=== PATIENT | male | born 1970 ===

== ENCOUNTER 2019-09-17 07:25 | Inpatient (IN) | payer OTHER, SELFPAY ==
[2019-09-17 09:41] VITALS: BMI 31.1
[2019-09-17] MEDS ORDERED: Ondansetron PF 4 MG/2 ML Vial IVP PRN (09:46)
[2019-09-17] MEDS ORDERED: Ondansetron ODT 4 MG TAB PO PRN (09:46)
[2019-09-17] MEDS ORDERED: Bisacodyl 10 MG SUPP PR PRN (09:46)
[2019-09-17] MEDS ORDERED: Loperamide HCl 2 MG CAP PO PRN (09:46)
[2019-09-17] MEDS ORDERED: Calcium Carbonate 500 MG ChewTAB PO PRN (09:46)
[2019-09-17] MEDS ORDERED: Senokot S 8.6-50 MG TAB PO PRN (09:46)
[2019-09-17] MEDS ORDERED: hydrALAZINE 20 MG/ML VIAL SLOW IVP PRN (09:46)
[2019-09-17] MEDS ORDERED: Sodium Chloride 0.65% Nasal 44 ML BOT EA NARE PRN (09:46)
[2019-09-17] MEDS ORDERED: Loratadine 10 MG TAB PO PRN (09:46)
[2019-09-17] MEDS ORDERED: Diabetic Tussin 200 MG/10 ML UDCUP PO PRN (09:46)
[2019-09-17] MEDS ORDERED: Acetaminophen 325 MG TAB PO PRN (09:46)
[2019-09-17] MEDS ORDERED: Cepastat Lozenges 1 LOZ PO PRN (09:46)
[2019-09-17] MEDS ORDERED: FLU VACC QS2019-20(6MOS UP)/PF 60 MCG/0.5 ML SYRINGE IM ONE (10:15)
--- NOTE | 2019-09-17 10:33 | HP ---
PRIMARY CARE PHYSICIAN: The patient is from long term. REASON FOR ADMISSION: Transferred from long term for altered mental status, syncope, found with rhabdomyolysis, suspected aspiration pneumonia, and hypoxia. HISTORY OF PRESENT ILLNESS: A 48-year-old male, who is in long term. Last night, he was found altered and lethargic. He was less responsive. Per the patient, he was having back pain and some vague chest discomfort and he passed out, but he does not have any other symptoms before passing out, and when he regained consciousness, he was having back pain. He did not have any fever or chills. He did not have any cough, shortness of breath, or palpitation. The patient is not able to provide any more detailed history. 911 was called at long term, and when paramedics saw him, at that time, the patient was appeared lethargic. As per report, the patient was found in his shell on the ground with altered mental status. The patient did not have any seizure or any focal neurologic deficit. When he went to [facility], the patient was found with mild hypoxia with saturation 92% on room air and he was afebrile and hemodynamically stable. The patient had evaluation over there and found with suspected pneumonia and he had routine blood test, which showed rhabdomyolysis. The patient was still lethargic, and subsequently, he was transferred to our hospital. Over there, the patient was given IV fluid, Narcan 0.4 mg and Rocephin 1 g. Over there, routine blood test showed hypokalemia, leukopenia, rhabdomyolysis, and EKG is normal. When I saw this patient, the patient is still sleepy, but arousable, and able to provide some history, but the patient does not have any clue why he is here. PAST MEDICAL HISTORY: As per long term system record, the patient has schizophrenia, glaucoma, osteoarthritis, venereal warts. PAST PSYCHIATRIC HISTORY: Schizophrenia. PAST SURGICAL HISTORY: Unable to obtain from the patient and the patient denies any previous surgical history. ALLERGIES: NO KNOWN DRUG ALLERGIES. SOCIAL HISTORY: The patient is from long term system. No history of tobacco, alcohol, or illicit drug abuse. EMERGENCY ROOM COURSE: The patient has received 3 L IV fluid, Narcan 0.4 mg, Rocephin 1 g. FAMILY HISTORY: No strong family history of CAD, CVA or cancer REVIEW OF SYSTEMS: CONSTITUTIONAL: Negative for weight loss or gain, ability to conduct usual activities. SKIN: Negative for rash, itching. EYES: Negative for double vision, pain. ENT/MOUTH: Negative for nose bleeding, neck stiffness, pain, tenderness. CARDIOVASCULAR: Negative for palpitations, dyspnea on exertion, orthopnea. RESPIRATORY: Negative for shortness of breath, wheezing, cough, hemoptysis, fever or night sweats. GASTROINTESTINAL: Negative for poor appetite, abdominal pain, heartburn, nausea , vomiting, constipation, or diarrhea. GENITOURINARY: Negative for urgency, frequency, dysuria, nocturia. MUSCULOSKELETAL: Negative for pain, swelling. NEUROLOGIC/PSYCHIATRIC: Negative for anxiety, depression. ALLERGY/IMMUNOLOGIC: Negative for skin rash, bleeding tendency. Please see my HPI for pertinent positives and negatives. All other review of systems reviewed and negative except as mentioned in HPI. CURRENT HOME MEDICATIONS: Benadryl and Phenergan as needed basis. PHYSICAL EXAMINATION: VITAL SIGNS: On arrival, blood pressure 144/87, pulse 71, respiratory rate 14, temperature 98.2, saturation 92% on room air. Weight 99.7 kg. GENERAL: The patient is currently alert, awake, follows simple commands, in no obvious acute distress. Arousable, but still sleepy. HEENT: Normocephalic and atraumatic. Eyes, pupils round and reactive to light. Extraocular muscle intact. ENT, oropharynx within normal limits. Moist mucous membranes. No oral lesion. No pharyngeal erythema. No exudate. NECK: Supple. No JVD. No meningeal signs of irritation. LUNGS: Clear to auscultation without any rhonchi or rales. CARDIAC: S1 and S2 regular. No murmur. No gallop. No rub. ABDOMEN: Soft. Bowel sounds are present. Nontender. Nondistended. No organomegaly. No mass. EXTREMITIES: No edema. Good distal pulsation. NEUROLOGIC: Cranial nerve 2 through 12 intact. Motor 5/5 in all 4 limbs. Sensation bilaterally symmetrical. Plantar bilateral flexor. No focal neurological deficit noted. PSYCHIATRIC: Normal affect. SIGNIFICANT LABORATORY DATA: CBC; WBC 3.4, hemoglobin 13.1, platelet 196. BMP; sodium 137, potassium 3.1, chloride 99, carbon dioxide 26, anion gap 15, glucose 172, BUN 14, creatinine 1.0. LFTs; albumin 3.7, protein 7.3, globulin 3.6, calcium 7.8, AST 71, ALT 45, alkaline phosphatase 58. Urinalysis normal. Urine drug screen negative. Ammonia level 17. TSH 0.91. CK of 2004, CK-MB 3.0. Troponin less than 0.017. ABG; pH 7.35, CO2 of 46, O2 of 64.8, bicarb 25.3. Lactic acid 1.39. Ionized calcium 1.1. IMAGING STUDIES: EKG based on my review, normal sinus rhythm, within normal limits. Chest x-ray done at the [facility]. As per report, the patient has suspected infiltration, but unable to review because there was no imaging sent. ASSESSMENT AND PLAN: Impression; 1. Acute encephalopathy, unclear etiology, suspecting metabolic. 2. Syncope/transient alteration of awareness. 3. Rhabdomyolysis. 4. Mild hypoxia and suspected aspiration pneumonia. 5. Hypokalemia. 6. Leukopenia. 7. History of schizophrenia. PLAN: 1. Telemetry monitoring. Start IV fluid NS with KCl at 100 mL/h. Check orthostatic vitals. Repeat chest x-ray tomorrow. Repeat labs tomorrow including magnesium, phosphorus, and CK. We will obtain echocardiography as a part of workup and carotid Doppler. The patient does not need any IMU and we will transfer him to telemetry floor. 2. Deep venous thrombosis prophylaxis, Lovenox 40 mg subcu daily. GI prophylaxis, Pepcid 20 mg p.o. b.i.d. CODE STATUS: The patient is full code. DISPOSITION PLAN: Based on clinical course, we are expecting the patient's stay in hospital for at least 2 midnights. Job ID: [id number] [facility]
--- NOTE | 2019-09-17 10:52 | ULT ---
BILATERAL CAROTID DUPLEX ULTRASOUND: HISTORY: Syncope TECHNIQUE: Grayscale, color-flow and spectral Doppler ultrasound imaging of the extracranial carotid artery syst ems was performed bilaterally. FINDINGS: No significant plaque formation or intimal wall thickening is seen The peak systolic velocity in the right ICA measures 60 cm/s with an end-diastolic velocity of 25 cm/ s and a systolic ratio of 0.70. The peak systolic velocity in the left ICA measures 66 cm/s with an end-diastolic velocity of 33 cm/s and a systolic ratio of 0.65. Flow in both vertebral arteries remains antegrade. IMPRESSION: No evidence of hemodynamically significant stenosis in either ICA
[2019-09-17] MEDS ORDERED: cefTRIAXone\\ROCEPHIN 1 GM in Sodium Chloride 0.9% 100 ML IVPB SCH (11:00)
[2019-09-17] MEDS: NS 0.9% w/ 20 MEQ KCL 1,000 ML/1,000 ML BAG IV SCH (14:21)
[2019-09-17] MEDS: Famotidine 20 MG TAB PO SCH (20:33)
[2019-09-18] MEDS: NS 0.9% w/ 20 MEQ KCL 1,000 ML/1,000 ML BAG IV SCH ×2 (00:03→10:20)
[2019-09-18 04:14] LABS: #Eosinphils 0.1 thou/uL (0.0-0.7); #Lymphocytes 1.2 thou/uL (1.20-3.40); #Monocytes 0.3 thou/uL (0.11-0.59); #Neutrophils 2.1 thou/uL (1.40-6.50); %Basophils 0.2 % (0.0-1.0); %Eosinophils 2.7 % (0.0-10.0); %Lymphocytes 31.5 % (21.0-51.0); %Monocytes 9.2 % (0.0-10.0); %Neutrophils 56.3 % (42.0-75.0); Hemoglobin 13.6 g/dL (14.0-18.0); Mean Corpuscular HGB CONC 34.3 g/dL (32.0-36.0); Mean Corpuscular Hemoglobin 33.1 pg (27.0-31.0); Mean Corpuscular Volume 96.5 fL (78.0-98.0); Mean Platelet Volume 6.8 fL (7.4-10.4); Platelet Count 214 thou/uL (130-400); RBC Distribution Width 11.5 % (11.5-14.5); White Blood Cell (WBC) Count 3.7 thou/uL (4.8-10.8)
[2019-09-18 04:25] LABS: ALT (SGPT) 30 U/L (8-55); AST (SGOT) 33 U/L (5-34); Albumin 3.9 g/dL (3.5-5.0); Alkaline Phosphatase 51 U/L (40-110); Anion Gap 10 mmol/L (10-20); BUN (Urea Nitrogen) 9 mg/dL (8.9-20.6); Bilirubin, Total 0.3 mg/dL (0.2-1.2); CK (CPK) 918 U/L (30-200); Calc. Creatinine Clearance 149 mL/min (70-130); Calcium 8.5 mg/dL (7.8-10.44); Carbon Dioxide 27 mmol/L (22-29); Chloride 106 mmol/L (98-107); Estimated GFR-MDRD 90; Globulin 2.9 g/dL (2.4-3.5); Glucose 108 mg/dL (70-105); Magnesium 2.2 mg/dL (1.6-2.6); Potassium 3.8 mmol/L (3.5-5.1); Protein, Total 6.8 g/dL (6.0-8.3); Sodium 139 mmol/L (136-145)
[2019-09-18] MEDS ORDERED: Enoxaparin Sodium 40 MG/0.4 ML SYRINGE SC SCH (09:00)
--- NOTE | 2019-09-18 09:35 | RAD ---
EXAM: Chest 2 views: HISTORY: Aspiration COMPARISON: None. FINDINGS: There is a normal-sized cardiomediastinal silhouette. There is no evidence of consolidation, mass, or pleural effusion. The bones are unremarkable. IMPRESSION: No evidence of acute cardiopulmonary disease
[2019-09-18] MEDS: Famotidine 20 MG TAB PO SCH (10:20)
--- NOTE | 2019-09-18 11:01 | DIS ---
DATE OF ADMISSION: 09/17/2019 DATE OF DISCHARGE: 09/18/2019 PRIMARY CARE PHYSICIAN: [facility] Call admission. DISCHARGE DISPOSITION: Care Home. PRIMARY DISCHARGE DIAGNOSES: 1. Transient altered mental status, resolved. 2. Syncope, unclear etiology. 3. Rhabdomyolysis. SECONDARY DISCHARGE DIAGNOSES: 1. Obesity with BMI 31. 2. Schizophrenia. PRIMARY PROCEDURE/OPERATION: None. RADIOLOGICAL INVESTIGATION: Chest x-ray, normal. Echocardiography, normal EF. Carotid Doppler, no stenosis. SIGNIFICANT LABORATORY DATA: WBC 3.7, hemoglobin 13.6, platelet 214. BMP; sodium 139, creatinine 0.90, potassium 3.8, chloride 106, carbon dioxide 27, anion gap 10, BUN 9, calcium 8.5, magnesium 2.2, AST 33, ALT 30, alkaline phosphatase 51. CK 918. Albumin 3.9. Troponin negative x2. DISCHARGE MEDICATIONS: The patient will continue all his previous medications. Doxycycline 100 mg twice daily for 5 days. CONTRAINDICATION: None. CODE STATUS: Full code. 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 ALLERGIES: NO KNOWN DRUG ALLERGIES. DISCHARGE PLAN: Posthospital, the patient will be discharged back to [facility]. HOSPITAL COURSE: A 48-year-old male, who had altered mental status at [facility]. He was found in his shell. He was disoriented at that time, and there was question of syncopal episode at [facility]. The patient was evaluated at [facility], where the patient had chest x-ray which was unremarkable. Routine blood test showed rhabdomyolysis. The patient had hypokalemia which was replaced. The patient was transferred to our hospital. We treated him with IV fluid. We continued with Rocephin for suspected pneumonia. On discharge, we changed to doxycycline. His chest x-ray is currently normal. His CK is significantly improved from yesterday. The patient is completely asymptomatic, and he wants to go back to [facility] today. We did echocardiography and carotid Doppler, normal. His telemetry remained unremarkable. We advised him to keep himself hydrated. At this point, the patient is back to normal. The patient is seen and examined at bedside today. PHYSICAL EXAMINATION: VITAL SIGNS: Currently, temperature 97.4, saturation 100% on room air, pulse 70, blood pressure 144/92, weight 229 pounds. GENERAL: The patient is alert and oriented x3. HEENT: Head, normocephalic and atraumatic. NECK: Supple. No JVD. No meningeal signs of irritation. LUNGS: Clear to auscultation without any rhonchi or rales. CARDIAC: S1 and S2. Regular without any murmur. No gallop. No rub. ABDOMEN: Soft. Bowel sounds present. Nontender. Nondistended. No organomegaly. No mass. EXTREMITIES: No edema. NEUROLOGIC: Nonfocal examination. The patient is medically stable for discharge today. Job ID: [id number]
[2019-09-18 11:40] VITALS: TEMP 98
--- NOTE | 2019-09-20 06:23 | PQF ---
JACEY MARSH SALIM NOORJIBHAI MD [id number] CLINICAL DOCUMENTATION CLARIFICATION FORM: POST DISCHARGE Addendum to original discharge summary date: ____ Late entry note date: __ DATE: 09/20/2019 ATTN: AIMEE BARROSO MD Please exercise your independent, professional judgment in responding to the clarification form. Clinical indicators are provided on the bottom of this form for your review Please check appropriate box(s): [ ] Aspiration Pneumonia [ x ] Pneumonia unspecified [ ] Other diagnosis [ ] Unable to determine For continuity of documentation, please document condition throughout progress notes and discharge summary. Thank You. CLINICAL INDICATORS - SIGNS / SYMPTOMS / LABS - Mild hypoxia and suspected aspiration pneumonia- H&P, 09/17,AIMEE BARROSO MD - Temp: 98.2, r: 14, Pulse: 71-H&P, 09/17DHARMESH SALIM NOORJIBHAI MD - WBC: 3.4-H&P, 09/17DHARMESH SALIM NOORJIBHAI MD - Hypoxia with sat 92% on room air-H&P, 09/17,AIMEE BARROSO MD - suspected pneumonia-H&P, 09/17,AIMEE BARROSO MD RISK FACTORS -Acute encephalopathy- H&P, 09/17,AIMEE BARROSO MD -Rhabdomyolysis- DS, 09/18, AIMEE BARROSO MD TREATMENTS: -Rocephin.IV- MAR, 09/17 (This form is maintained as a part of the permanent medical record) 2014 [employer]. All Rights Reserved Miller Reyes [not provided] [not provided] JANET
--- NOTE | 2019-09-20 06:45 | PQF ---
JACEY MARSH SALIM NOORJIBHAI MD [id number] CLINICAL DOCUMENTATION CLARIFICATION FORM: POST DISCHARGE Addendum to original discharge summary date: ____ Late entry note date: __ DATE: 09/20/2019 ATTN:AIMEE BARROSO MD Please exercise your independent, professional judgment in responding to the clarification form. Clinical indicators are provided on the bottom of this form for your review Please check appropriate box(s): [ ] Acute Metabolic encephalopathy [ ] Acute Encephalopathy unspecified [ x ] Transient Altered mental status [ ] Other diagnosis [ ] Unable to determine For continuity of documentation, please document condition throughout progress notes and discharge summary. Thank You. CLINICAL INDICATORS - SIGNS / SYMPTOMS / LABS - Acute encephalopathy, unclear etiology, suspecting metabolic - H&P, 09/17, AIMEE BARROSO MD - Syncope/transient alteration of awareness-H&P, 09/17, AIMEE BARROSO MD - Transient altered mental status, resolved- DS, 09/18, AIMEE BARROSO MD - CK: 918H- Laboratory, 09/18 RISK FACTORS - Rhabdomyolysis-H&P, 09/17, AIMEE BARROSO MD - Schizophrenia- DS, 09/18DHARMESH SALIM NOORJIBHAI MD - Hypokalemia- DS, 09/18DHARMESH SALIM NOORJIBHAI MD TREATMENTS: - Rocephin.IV- 09/17 - Sodium chloride.IV- DEC, 09/17 (This form is maintained as a part of the permanent medical record) 2014 [employer]. All Rights Reserved Miller Reyes [not provided] [not provided] MTDD
== END 2019-09-18 13:05 | DRG 557 ==
LOC: EEVIPCON 09:00 → IMCU/EMU 09:00
PROVIDERS: ADMIT Internal Medicine; ATTEND Internal Medicine
DX: M62.82 Rhabdomyolysis (principal); J18.9 Pneumonia, unspecified organism; R41.82 Altered mental status, unspecified; R55 Syncope and collapse; E87.6 Hypokalemia; D72.819 Decreased white blood cell count, unspecified; M19.90 Unspecified osteoarthritis, unspecified site; F20.9 Schizophrenia, unspecified
CPT/HCPCS: 36415; 71046; 80053; 82550; 83735; 84484; 85025; 93306; 93880; J0696; J3480; J3490